=== PATIENT | female | born 1950 | race Caucasian/White ===

== ENCOUNTER 2018-11-11 17:35 | Observation (INO) | payer BC ==
[2018-11-11] MEDS ORDERED: Sodium Chloride 0.9% 1,000 ML IV ONE (17:47)
[2018-11-11] MEDS ORDERED: Adenosine 6 MG/2 ML SDV ONE ×2 (17:51→17:57)
[2018-11-11] MEDS ORDERED: Iopamidol 612 MG/ML 100 ML Bottle IVPUSH ONE (17:55)
[2018-11-11] MEDS ORDERED: Adenosine 6 MG/2 ML SDV IVPUSH ONE ×2 (18:06→18:10)
--- NOTE | 2018-11-11 18:30 | EDM.PDOC ---
ED HPI GENERAL MEDICAL PROBLEM - General Chief Complaint: General Stated Complaint: dizziness, tachycardia (came from clinic) Time Seen by Provider: 11/11/18 17:55 Source of Information: Reports: Patient History Limitations: Reports: No Limitations - History of Present Illness INITIAL COMMENTS - FREE TEXT/NARRATIVE: Adriana is a 68 year old female who presents to the ED with c/o dizziness, nausea , and gross hematuria. Presented to clinic and found to have pulse of 160 so was sent to ED. She reports she was seen in clinic 11/04/2017 by Chio OATES with gross hematuria for the past 2 weeks. Was told she had UTI. She reports she took the Bactrim as prescribed. Has not noticed much change in her hematuria. Urine culture was negative and rather showed contamination per my chart review. She has had gross hematuria for the past 4 weeks now and is wondering if she "has lost too much blood." Reports the dizziness and nausea just started this afternoon. She denies any chest pain, palpitations, shortness of breath. She is a smoker for the past 50 years. Reports she has been trying to cut back. Has cut down to 4-5 cigarettes/day. Reports she has chronic productive cough. O2 sat 91% in ED. Does report dyspnea with exertion. Associated Symptoms: Reports: Cough, cough w sputum, Loss of Appetite, Nausea/ Vomiting, Shortness of Breath. Denies: Confusion, Chest Pain, Diaphoresis, Fever/Chills, Headaches, Malaise, Rash, Seizure, Syncope, Weakness - Related Data Allergies Allergy/AdvReac Type Severity Reaction Status Date / Time erythromycin base Allergy Cannot Verified 11/11/18 17:39 Remember Home Meds: Home Meds Levothyroxine Sodium 125 mcg PO DAILY 05/08/16 [History] Loratadine [Claritin] 10 mg PO DAILY PRN 05/08/16 [History] Multivitamin [Multi-Day Vitamins] 1 tab PO DAILY 11/11/18 [History] Vitamin E 1 cap PO DAILY 11/11/18 [History] Metoprolol Succinate [Toprol XL] 12.5 mg PO BEDTIME #90 tab.er 11/12/18 [Rx] Past Medical History Cardiovascular History: Reports: High Cholesterol Respiratory History: Reports: SOB Genitourinary History: Reports: None Endocrine/Metabolic History: Reports: Hypothyroidism Social & Family History - Family History Family Medical History: Noncontributory - Tobacco Use Smoking Status *Q: Current Every Day Smoker Years of Tobacco use: 50 Packs/Tins Daily: 1 Packs/Tins Daily Comment: Has been trying to quit the past few months, down to 4 -5 cigarettes/day - Recreational Drug Use Recreational Drug Use: No - Living Situation & Occupation Living situation: Reports: ED ROS GENERAL - Review of Systems Review Of Systems: See Below Constitutional: Reports: Decreased Appetite. Denies: Fever, Chills, Malaise, Weakness, Fatigue, Diaphoresis HEENT: Reports: No Symptoms Respiratory: Reports: Shortness of Breath, Wheezing, Cough, Sputum Cardiovascular: Reports: Dyspnea on Exertion, Lightheadedness. Denies: Chest Pain, Edema, Palpitations, Syncope Endocrine: Denies: Fatigue GI/Abdominal: Reports: Decreased Appetite, Nausea. Denies: Abdominal Pain, Constipation, Diarrhea, Hematemesis, Hematochezia, Melena, Vomiting : Reports: Hematuria. Denies: Dysuria, Flank Pain, Urgency Musculoskeletal: Reports: No Symptoms Skin: Reports: No Symptoms Neurological: Reports: Dizziness. Denies: Confusion, Numbness, Paresthesia, Syncope, Tingling, Tremors, Weakness Psychiatric: Denies: Anxiety, Depression Hematologic/Lymphatic: Reports: No Symptoms Immunologic: Reports: No Symptoms ED EXAM, GENERAL - Physical Exam Exam: See Below Exam Limited By: No Limitations General Appearance: Alert, WD/WN, No Apparent Distress Eye Exam: Bilateral Eye: EOMI, Normal Fundi, Normal Inspection, PERRL Ears: Normal External Exam, Normal Canal, Hearing Grossly Normal, Normal TMs Nose: Normal Inspection, Normal Mucosa, No Blood Throat/Mouth: Normal Inspection, Normal Lips, Normal Teeth, Normal Gums, Normal Oropharynx, Normal Voice, No Airway Compromise Head: Atraumatic, Normocephalic Neck: Normal Inspection, Supple, Non-Tender, Full Range of Motion Respiratory/Chest: No Respiratory Distress, No Accessory Muscle Use Cardiovascular: Normal Peripheral Pulses, No Edema, No JVD, No Murmur, Tachycardia Peripheral Pulses: 2+: Dorsalis Pedis (L), Dorsalis Pedis (R) GI/Abdominal: Normal Bowel Sounds, Soft, Non-Tender, No Organomegaly, No Distention, No Abnormal Bruit, No Mass Back Exam: Normal Inspection, Full Range of Motion. No: CVA Tenderness (L), CVA Tenderness (R) Extremities: Normal Inspection, Normal Range of Motion, Non-Tender, Normal Capillary Refill, No Pedal Edema Neurological: Alert, Oriented, CN II-XII Intact, Normal Cognition, Normal Gait, Normal Reflexes, No Motor/Sensory Deficits Psychiatric: Normal Affect, Normal Mood Skin Exam: Warm, Dry, Intact, Normal Color, No Rash Lymphatic: No Adenopathy Course - Vital Signs Last Recorded V/S: Last Vital Signs Temp 97.8 F 11/12/18 11:59 Pulse 55 L 11/12/18 11:59 Resp 20 11/12/18 11:59 BP 137/70 11/12/18 11:59 Pulse Ox 96 11/12/18 11:59 - Orders/Labs/Meds Labs: Laboratory Tests 11/11/18 11/11/18 11/11/18 Range/Units 17:45 17:51 17:51 WBC 8.7 (5.0-10.0) 10^3/uL RBC 4.74 (4.00-5.50) 10^6/uL Hgb 14.7 (12.0-16.0) g/dL Hct 43.9 (37.0-47.0) % MCV 92.6 (82.0-94.0) fL MCH 31.0 (27.0-32.0) pg MCHC 33.5 (33.0-38.0) g/dL RDW Coeff of Maren 13.2 (11.0-15.0) % Plt Count 295 (150-400) 10^3/uL Neut % (Auto) 58.9 (35-85) % Lymph % (Auto) 28.0 (10-55) % Hanson % (Auto) 10.0 (0-16) % Eos % (Auto) 2.5 (0-5) % Baso % (Auto) 0.6 (0-3) % Neut # (Auto) 5.10 (1.80-7.00) 10^3/uL Lymph # (Auto) 2.43 (1.00-4.80) 10^3/uL Hanson # (Auto) 0.87 H (0.00-0.80) 10^3/uL Eos # (Auto) 0.22 (0.00-0.45) 10^3/uL Baso # (Auto) 0.05 10^3/uL PT 10.3 (9.7-12.3) SEC INR 0.99 (0.92-1.18) APTT 30.2 (23.2-32.3) SEC Sodium (136-145) mEq/L Potassium (3.5-5.0) mEq/L Chloride (98-106) mEq/L Carbon Dioxide (21-32) mmol/L BUN (7-18) mg/dL Creatinine (0.6-1.0) mg/dL Est Cr Clr Drug Dosing mL/min Estimated GFR (MDRD) (>=60) mL/min Glucose (75-99) mg/dL Hemoglobin A1c 6.0 (4.8-6.2) % Calcium (8.4-10.1) mg/dL Lactate Dehydrogenase (100-190) U/L Creatine Kinase (21-215) U/L Troponin I (0.00-0.06) ng/mL TSH, Ultra Sensitive (0.36-5.60) uIU/mL Urine Color (YELLOW) Urine Appearance (CLEAR) Urine pH (4.5-8.0) Ur Specific [place] (1.003-1.020) Urine Protein (NEGATIVE) mg/dL Urine Glucose (UA) (NEGATIVE) mg/dL Urine Ketones (NEGATIVE) mg/dL Urine Occult Blood (NEGATIVE) Urine Nitrite (NEGATIVE) Urine Bilirubin (NEGATIVE) Urine Urobilinogen (0.2-1.0) EU/dL Ur Leukocyte Esterase (NEGATIVE) Urine RBC (0-5) /HPF Urine WBC (0-5) /HPF 11/11/18 11/11/18 Range/Units 17:51 19:04 WBC (5.0-10.0) 10^3/uL RBC (4.00-5.50) 10^6/uL Hgb (12.0-16.0) g/dL Hct (37.0-47.0) % MCV (82.0-94.0) fL MCH (27.0-32.0) pg MCHC (33.0-38.0) g/dL RDW Coeff of Maren (11.0-15.0) % Plt Count (150-400) 10^3/uL Neut % (Auto) (35-85) % Lymph % (Auto) (10-55) % Hanson % (Auto) (0-16) % Eos % (Auto) (0-5) % Baso % (Auto) (0-3) % Neut # (Auto) (1.80-7.00) 10^3/uL Lymph # (Auto) (1.00-4.80) 10^3/uL Hanson # (Auto) (0.00-0.80) 10^3/uL Eos # (Auto) (0.00-0.45) 10^3/uL Baso # (Auto) 10^3/uL PT (9.7-12.3) SEC INR (0.92-1.18) APTT (23.2-32.3) SEC Sodium 134 L (136-145) mEq/L Potassium 4.8 (3.5-5.0) mEq/L Chloride 99 (98-106) mEq/L Carbon Dioxide 25 (21-32) mmol/L BUN 21 H (7-18) mg/dL Creatinine 1.7 H D (0.6-1.0) mg/dL Est Cr Clr Drug Dosing 32.18 mL/min Estimated GFR (MDRD) 30 L (>=60) mL/min Glucose 158 H D (75-99) mg/dL Hemoglobin A1c (4.8-6.2) % Calcium 9.4 (8.4-10.1) mg/dL Lactate Dehydrogenase 187 (100-190) U/L Creatine Kinase 71 (21-215) U/L Troponin I 0.049 (0.00-0.06) ng/mL TSH, Ultra Sensitive 2.21 (0.36-5.60) uIU/mL Urine Color Red (YELLOW) Urine Appearance Cloudy (CLEAR) Urine pH 6.0 (4.5-8.0) Ur Specific [place] 1.010 (1.003-1.020) Urine Protein >=300 H (NEGATIVE) mg/dL Urine Glucose (UA) 100 H (NEGATIVE) mg/dL Urine Ketones 15 H (NEGATIVE) mg/dL Urine Occult Blood Large H (NEGATIVE) Urine Nitrite Negative (NEGATIVE) Urine Bilirubin Negative (NEGATIVE) Urine Urobilinogen 0.2 (0.2-1.0) EU/dL Ur Leukocyte Esterase Negative (NEGATIVE) Urine RBC Packed H (0-5) /HPF Urine WBC Not seen (0-5) /HPF Meds: Medications Discontinued Medications Generic Name Dose Route Start Last Admin Trade Name Freq PRN Reason Stop Dose Admin Acetaminophen 650 mg 11/11/18 20:29 Tylenol PO Q4H PRN Pain (Mild 1-3)/fever Adenosine Confirm 11/11/18 17:51 11/11/18 18:22 Adenocard Administered 11/11/18 17:52 Not Given Dose 6 mg .ROUTE .STK-MED ONE Adenosine Confirm 11/11/18 17:57 11/11/18 18:22 Adenocard Administered 11/11/18 17:58 Not Given Dose 12 mg .ROUTE .STK-MED ONE Adenosine 6 mg 11/11/18 18:06 11/11/18 18:06 Adenocard IVPUSH 11/11/18 18:07 6 mg NOW ONE Administration Adenosine 12 mg 11/11/18 18:10 11/11/18 18:10 Adenocard IVPUSH 11/11/18 18:11 12 mg NOW ONE Administration Sodium Chloride 1,000 mls @ 250 mls/hr 11/11/18 17:47 11/11/18 18:28 Normal Saline IV 11/11/18 21:46 999 mls/hr .BOLUS ONE Administration Sodium Chloride 1,000 mls @ 125 mls/hr 11/11/18 20:29 11/12/18 05:56 Normal Saline IV Infused ASDIRECTED AILYN Infusion Iopamidol 100 ml 11/11/18 17:55 11/11/18 18:58 Isovue-300 (61%) IVPUSH 11/11/18 17:56 100 ml ONETIME ONE Administration Metoprolol Succinate 25 mg 11/11/18 20:29 11/11/18 21:18 Toprol Xl PO 25 mg BEDTIME IALYN Administration Ondansetron HCl 4 mg 11/11/18 20:29 Zofran IV Q6H PRN Nausea/Vomiting Temazepam 15 mg 11/11/18 20:29 Restoril PO BEDTIME PRN Sleep - Re-Assessments/Exams Free Text/Narrative Re-Assessment/Exam: 11/11/18 1751 Adenosine 6 mg administered via [address] stop cock to right AC PIV. Patient had no change in rate/rhythm following. 11/11/18 1800 Second dose of adenosine 12 mg administered. Pulse reduced to 80s. Repeat EKG shows sinus rhythm. Patient did have some nausea after administration that improved 1-2 minutes following administration. Cardiac monitoring in place. Pulse remains in 70-80s. BP stable. 11/11/18 18:44 Discussed ongoing gross hematuria with negative urine culture with patient. Discussed that we need to get imaging to determine cause of ongoing bleeding. Creatinine elevated to 1.7. Start IVF. Will get chest/abdomen/pelvis CT. 11/11/18 19:46 Cnsulted with [facility] [employer] Dr. Bolanos re: SVT. Reports we can start her on metoprolol and recommends f/u if SVT recurs. CT chest/abd/pelvis pending. Will admit to observation overnight for IVF and cardiac monitoring. 11/11/181999 CT abdomen pelvis reveals 2 x 2.5 cm left bladder mass. Discussed this with patient. She is currently voiding without difficulty. Free Text/Narrative Re-Assessment/Exam: PLEASE SEE NURSES NOT FOR FURTHER PMH, PSH, SH, & FH. Departure - Departure Time of Disposition: 19:56 Disposition: Home, Self-Care 01 Condition: Good Clinical Impression: Supraventricular tachycardia, Gross hematuria, Bladder mass, Acute renal insufficiency - Discharge Information *PRESCRIPTION DRUG MONITORING PROGRAM REVIEWED*: Not Applicable *COPY OF PRESCRIPTION DRUG MONITORING REPORT IN PATIENT DEIDRE: Not Applicable - Problem List & Annotations (1) Acute renal insufficiency SNOMED Code(s): 688898691 Code(s): N28.9 - DISORDER OF KIDNEY AND URETER, UNSPECIFIED Status: Acute (2) Bladder mass SNOMED Code(s): 891524667 Code(s): N32.89 - OTHER SPECIFIED DISORDERS OF BLADDER Status: Acute (3) Gross hematuria SNOMED Code(s): 679680625 Code(s): R31.0 - GROSS HEMATURIA Status: Acute (4) Supraventricular tachycardia SNOMED Code(s): 7612799 Code(s): I47.1 - SUPRAVENTRICULAR TACHYCARDIA Status: Acute - Problem List Review Problem List Initiated/Reviewed/Updated: Yes - Assessment/Plan Admission H&P: Please use this note as an admission H&P Plan: Admit to observation for cardiac monitoring overnight. Will repeat cardiac enzymes and lab work in am. Start IVF. Will start patient on low dose metoprolol daily. Discussed that we will arrange urology follow up on outpatient basis re: bladder mass. Patient transferred to floor in satisfactory condition.
[2018-11-11] MEDS ORDERED: Acetaminophen 325 MG Tab PO PRN (20:29)
[2018-11-11] MEDS ORDERED: Temazepam 15 MG Cap PO PRN (20:29)
[2018-11-11] MEDS ORDERED: Metoprolol Succinate 25 MG Tab.ER PO SCH (20:29)
[2018-11-11] MEDS ORDERED: Ondansetron 4 MG/2 ML SDV IV PRN (20:29)
[2018-11-11] MEDS: Sodium Chloride 0.9% 1,000 ML IV SCH (22:21)
[2018-11-12] MEDS: Sodium Chloride 0.9% 1,000 ML IV SCH (05:56)
--- NOTE | 2018-11-12 15:40 | PCM.DCSUM1 ---
Discharge Summary - Hospital Course Free Text/Narrative:: Adriana is a pleasant 68 year old female who was admitted to the hospital from the ED on 11/11/2018 with gross hematuria, bladder mass, GUY, and SVT. She presented to the clinic with c/o dizziness and nausea and was found to have pulse of 160, so was sent to ED. EKG revealed SVT with rate of 178. She did convert to NSR after 2 doses of adenosine and remained in NSR throughout hospital stay. She was started on metoprolol. Initially started on 25 mg metoprolol succinate daily. Did have pulse in 50s at times. Will be discharged home on 12.5 mg daily. Troponin was 0.049 on admit. Increased to 0.154. Did opt to keep for recheck and reduced to 0.128. Patient also had echo. Results pending at time of discharge. Chest CT revealed mildly dilated ascending aorta but no other acute findings. She also had been having gross hematuria for about the past [address] abdomen/ pelvis revealed 2 x 2.5 cm left bladder mass. Had previous negative urine culture. Was treated with Bactrim starting 11/04/2018 without resolution of hematuria. She continued to have gross hematuria throughout stay, but had no issues of urinary retention. Was voiding without difficulty. Hemoglobin stable at 14.7 on admit. Did drop to 13.1, however I suspect this is dilutional. Creatinine was elevated to 1.7 on admit. Did improve to 1.0 at time of discharge. Patient will be discharged home on 12.5 mg metoprolol succinate daily at . She is scheduled to follow up with urology December 06, cystoscopy scheduled for that time as well. She is advised to follow up with PCP if any issues with heart palpitations, dizziness, urinary retention, or any other concerns. Patient will be discharged home in satisfactory condition. We will notify patient of echocardiogram results when available. - Discharge Data Discharge Date: 11/12/18 Discharge Disposition: Home, Self-Care 01 Condition: Good - Discharge Diagnosis/Problem(s) (1) Acute renal insufficiency SNOMED Code(s): 173390175 ICD Code: N28.9 - DISORDER OF KIDNEY AND URETER, UNSPECIFIED Status: Acute (2) Bladder mass SNOMED Code(s): 887395936 ICD Code: N32.89 - OTHER SPECIFIED DISORDERS OF BLADDER Status: Acute (3) Gross hematuria SNOMED Code(s): 799839475 ICD Code: R31.0 - GROSS HEMATURIA Status: Acute (4) Supraventricular tachycardia SNOMED Code(s): 5298399 ICD Code: I47.1 - SUPRAVENTRICULAR TACHYCARDIA Status: Acute - Patient Instructions Diet: Usual Diet as Tolerated Activity: As Tolerated Notify Provider of: Fever, Increased Pain, Nausea and/or Vomiting Other/Special Instructions: Notify provider if any difficulty urinating, low pulse, dizziness, or heart racing - Discharge Plan *PRESCRIPTION DRUG MONITORING PROGRAM REVIEWED*: Not Applicable *COPY OF PRESCRIPTION DRUG MONITORING REPORT IN PATIENT DEIDRE: Not Applicable Prescriptions/Med Rec: Metoprolol Succinate [Toprol XL] 12.5 mg PO BEDTIME #90 tab.er Home Medications: Home Meds Levothyroxine Sodium 125 mcg PO DAILY 05/08/16 [History] Loratadine [Claritin] 10 mg PO DAILY PRN 05/08/16 [History] Multivitamin [Multi-Day Vitamins] 1 tab PO DAILY 11/11/18 [History] Vitamin E 1 cap PO DAILY 11/11/18 [History] Metoprolol Succinate [Toprol XL] 12.5 mg PO BEDTIME #90 tab.er 11/12/18 [Rx] Patient Handouts: Supraventricular Tachycardia, Adult Forms: ED Department Discharge Referrals: Norma Harrington PA-C [Primary Care Provider] - - Discharge Summary/Plan Comment DC Time >30 min.: No - General Info Date of Service: 11/12/18 Admission Dx/Problem (Free Text: SVT Bladder Mass GUY Gross Hematuria Subjective Update: Patient reports she has been feeling well throughout night. Has not had any dizziness, N/V, chest pain, shortness of breath. She continues to have gross hematuria, but has not had any difficulties voiding. Denies any abdominal pain. Has been eating full diet without issues. No concerns. Functional Status: Reports: Pain Controlled, Tolerating Diet, Ambulating, Urinating. Denies: New Symptoms - Review of Systems General: Reports: No Symptoms. Denies: Fever, Weakness, Fatigue, Malaise, Chills HEENT: Reports: No Symptoms Pulmonary: Reports: No Symptoms. Denies: Shortness of Breath Cardiovascular: Reports: No Symptoms. Denies: Chest Pain, Palpitations, Dyspnea on Exertion, Orthopnea, Edema, Lightheadedness Gastrointestinal: Reports: No Symptoms. Denies: Abdominal Pain, Decreased Appetite, Diarrhea, Nausea, Vomiting Genitourinary: Reports: Hematuria. Denies: Dysuria, Frequency, Burning, Pain, Urgency, Retention, Flank Pain Musculoskeletal: Reports: No Symptoms Skin: Reports: No Symptoms Neurological: Reports: No Symptoms. Denies: Dizziness, Headache, Weakness Psychiatric: Reports: No Symptoms - Patient Data Vitals - Most Recent: Last Vital Signs Temp 97.8 F 11/12/18 11:59 Pulse 55 L 11/12/18 11:59 Resp 20 11/12/18 11:59 BP 137/70 11/12/18 11:59 Pulse Ox 96 11/12/18 11:59 Weight - Most Recent: 211 lb 8 oz I&O - Last 24 hours: Intake & Output 11/12/18 11/12/18 11/12/18 06:59 14:59 22:59 Intake Total 1748 1000 Output Total 1200 Balance 548 1000 Lab Results - Last 24 hrs: Laboratory Results - last 24 hr 11/11/18 11/11/18 11/11/18 Range/Units 17:45 17:51 17:51 WBC 8.7 (5.0-10.0) 10^3/uL RBC 4.74 (4.00-5.50) 10^6/uL Hgb 14.7 (12.0-16.0) g/dL Hct 43.9 (37.0-47.0) % MCV 92.6 (82.0-94.0) fL MCH 31.0 (27.0-32.0) pg MCHC 33.5 (33.0-38.0) g/dL RDW Coeff of Maren 13.2 (11.0-15.0) % Plt Count 295 (150-400) 10^3/uL Neut % (Auto) 58.9 (35-85) % Lymph % (Auto) 28.0 (10-55) % Chambers % (Auto) 10.0 (0-16) % Eos % (Auto) 2.5 (0-5) % Baso % (Auto) 0.6 (0-3) % Neut # (Auto) 5.10 (1.80-7.00) 10^3/uL Lymph # (Auto) 2.43 (1.00-4.80) 10^3/uL Chambers # (Auto) 0.87 H (0.00-0.80) 10^3/uL Eos # (Auto) 0.22 (0.00-0.45) 10^3/uL Baso # (Auto) 0.05 10^3/uL PT 10.3 (9.7-12.3) SEC INR 0.99 (0.92-1.18) APTT 30.2 (23.2-32.3) SEC Sodium (136-145) mEq/L Potassium (3.5-5.0) mEq/L Chloride (98-106) mEq/L Carbon Dioxide (21-32) mmol/L BUN (7-18) mg/dL Creatinine (0.6-1.0) mg/dL Est Cr Clr Drug Dosing mL/min Estimated GFR (MDRD) (>=60) mL/min Glucose (75-99) mg/dL Hemoglobin A1c 6.0 (4.8-6.2) % Calcium (8.4-10.1) mg/dL Lactate Dehydrogenase (100-190) U/L Creatine Kinase (21-215) U/L Troponin I (0.00-0.06) ng/mL Triglycerides (30-150) mg/dL Cholesterol (0-199) mg/dL LDL Cholesterol, Calc (0-99) mg/dL HDL Cholesterol (60-90) mg/dL TSH, Ultra Sensitive (0.36-5.60) uIU/mL Urine Color (YELLOW) Urine Appearance (CLEAR) Urine pH (4.5-8.0) Ur Specific [place] (1.003-1.020) Urine Protein (NEGATIVE) mg/dL Urine Glucose (UA) (NEGATIVE) mg/dL Urine Ketones (NEGATIVE) mg/dL Urine Occult Blood (NEGATIVE) Urine Nitrite (NEGATIVE) Urine Bilirubin (NEGATIVE) Urine Urobilinogen (0.2-1.0) EU/dL Ur Leukocyte Esterase (NEGATIVE) Urine RBC (0-5) /HPF Urine WBC (0-5) /HPF 11/11/18 11/11/18 11/12/18 Range/Units 17:51 19:04 07:00 WBC 4.6 L (5.0-10.0) 10^3/uL RBC 4.28 (4.00-5.50) 10^6/uL Hgb 13.1 (12.0-16.0) g/dL Hct 40.3 (37.0-47.0) % MCV 94.2 H (82.0-94.0) fL MCH 30.6 (27.0-32.0) pg MCHC 32.5 L (33.0-38.0) g/dL RDW Coeff of Maren 13.2 (11.0-15.0) % Plt Count 239 (150-400) 10^3/uL Neut % (Auto) 55.3 (35-85) % Lymph % (Auto) 26.0 (10-55) % Chambers % (Auto) 14.1 (0-16) % Eos % (Auto) 3.7 (0-5) % Baso % (Auto) 0.9 (0-3) % Neut # (Auto) 2.55 (1.80-7.00) 10^3/uL Lymph # (Auto) 1.20 (1.00-4.80) 10^3/uL Chambers # (Auto) 0.65 (0.00-0.80) 10^3/uL Eos # (Auto) 0.17 (0.00-0.45) 10^3/uL Baso # (Auto) 0.04 10^3/uL PT (9.7-12.3) SEC INR (0.92-1.18) APTT (23.2-32.3) SEC Sodium 134 L (136-145) mEq/L Potassium 4.8 (3.5-5.0) mEq/L Chloride 99 (98-106) mEq/L Carbon Dioxide 25 (21-32) mmol/L BUN 21 H (7-18) mg/dL Creatinine 1.7 H D (0.6-1.0) mg/dL Est Cr Clr Drug Dosing 32.18 mL/min Estimated GFR (MDRD) 30 L (>=60) mL/min Glucose 158 H D (75-99) mg/dL Hemoglobin A1c (4.8-6.2) % Calcium 9.4 (8.4-10.1) mg/dL Lactate Dehydrogenase 187 (100-190) U/L Creatine Kinase 71 (21-215) U/L Troponin I 0.049 (0.00-0.06) ng/mL Triglycerides (30-150) mg/dL Cholesterol (0-199) mg/dL LDL Cholesterol, Calc (0-99) mg/dL HDL Cholesterol (60-90) mg/dL TSH, Ultra Sensitive 2.21 (0.36-5.60) uIU/mL Urine Color Red (YELLOW) Urine Appearance Cloudy (CLEAR) Urine pH 6.0 (4.5-8.0) Ur Specific [place] 1.010 (1.003-1.020) Urine Protein >=300 H (NEGATIVE) mg/dL Urine Glucose (UA) 100 H (NEGATIVE) mg/dL Urine Ketones 15 H (NEGATIVE) mg/dL Urine Occult Blood Large H (NEGATIVE) Urine Nitrite Negative (NEGATIVE) Urine Bilirubin Negative (NEGATIVE) Urine Urobilinogen 0.2 (0.2-1.0) EU/dL Ur Leukocyte Esterase Negative (NEGATIVE) Urine RBC Packed H (0-5) /HPF Urine WBC Not seen (0-5) /HPF 11/12/18 11/12/18 Range/Units 07:10 14:40 WBC (5.0-10.0) 10^3/uL RBC (4.00-5.50) 10^6/uL Hgb (12.0-16.0) g/dL Hct (37.0-47.0) % MCV (82.0-94.0) fL MCH (27.0-32.0) pg MCHC (33.0-38.0) g/dL RDW Coeff of Maren (11.0-15.0) % Plt Count (150-400) 10^3/uL Neut % (Auto) (35-85) % Lymph % (Auto) (10-55) % Chambers % (Auto) (0-16) % Eos % (Auto) (0-5) % Baso % (Auto) (0-3) % Neut # (Auto) (1.80-7.00) 10^3/uL Lymph # (Auto) (1.00-4.80) 10^3/uL Chambers # (Auto) (0.00-0.80) 10^3/uL Eos # (Auto) (0.00-0.45) 10^3/uL Baso # (Auto) 10^3/uL PT (9.7-12.3) SEC INR (0.92-1.18) APTT (23.2-32.3) SEC Sodium 139 (136-145) mEq/L Potassium 4.7 (3.5-5.0) mEq/L Chloride 105 (98-106) mEq/L Carbon Dioxide 29 (21-32) mmol/L BUN 14 (7-18) mg/dL Creatinine 1.0 (0.6-1.0) mg/dL Est Cr Clr Drug Dosing 54.71 mL/min Estimated GFR (MDRD) 55 L (>=60) mL/min Glucose 89 D (75-99) mg/dL Hemoglobin A1c (4.8-6.2) % Calcium 8.6 (8.4-10.1) mg/dL Lactate Dehydrogenase (100-190) U/L Creatine Kinase (21-215) U/L Troponin I 0.154 H 0.128 H (0.00-0.06) ng/mL Triglycerides 63 (30-150) mg/dL Cholesterol 174 (0-199) mg/dL LDL Cholesterol, Calc 110 H (0-99) mg/dL HDL Cholesterol 51 L (60-90) mg/dL TSH, Ultra Sensitive (0.36-5.60) uIU/mL Urine Color (YELLOW) Urine Appearance (CLEAR) Urine pH (4.5-8.0) Ur Specific [place] (1.003-1.020) Urine Protein (NEGATIVE) mg/dL Urine Glucose (UA) (NEGATIVE) mg/dL Urine Ketones (NEGATIVE) mg/dL Urine Occult Blood (NEGATIVE) Urine Nitrite (NEGATIVE) Urine Bilirubin (NEGATIVE) Urine Urobilinogen (0.2-1.0) EU/dL Ur Leukocyte Esterase (NEGATIVE) Urine RBC (0-5) /HPF Urine WBC (0-5) /HPF Med Orders - Current: Current Medications Acetaminophen (Tylenol) 650 mg PO Q4H PRN PRN Reason: Pain (Mild 1-3)/fever Sodium Chloride (Normal Saline) 1,000 mls @ 125 mls/hr IV ASDIRECTED AILYN Last Infusion: 11/12/18 05:56 Dose: Infused Metoprolol Succinate (Toprol Xl) 25 mg PO BEDTIME AILYN Last Admin: 11/11/18 21:18 Dose: 25 mg Ondansetron HCl (Zofran) 4 mg IV Q6H PRN PRN Reason: Nausea/Vomiting Temazepam (Restoril) 15 mg PO BEDTIME PRN PRN Reason: Sleep Discontinued Medications Adenosine (Adenocard) Confirm Administered Dose 6 mg .ROUTE .STK-MED ONE Stop: 11/11/18 17:52 Last Admin: 11/11/18 18:22 Dose: Not Given Adenosine (Adenocard) Confirm Administered Dose 12 mg .ROUTE .STK-MED ONE Stop: 11/11/18 17:58 Last Admin: 11/11/18 18:22 Dose: Not Given Adenosine (Adenocard) 6 mg IVPUSH NOW ONE Stop: 11/11/18 18:07 Last Admin: 11/11/18 18:06 Dose: 6 mg Adenosine (Adenocard) 12 mg IVPUSH NOW ONE Stop: 11/11/18 18:11 Last Admin: 11/11/18 18:10 Dose: 12 mg Sodium Chloride (Normal Saline) 1,000 mls @ 250 mls/hr IV .BOLUS ONE Stop: 11/11/18 21:46 Last Admin: 11/11/18 18:28 Dose: 999 mls/hr Iopamidol (Isovue-300 (61%)) 100 ml IVPUSH ONETIME ONE Stop: 11/11/18 17:56 Last Admin: 11/11/18 18:58 Dose: 100 ml - Exam General: Reports: Alert, Oriented, No Acute Distress Neck: Reports: Supple Lungs: Reports: Clear to Auscultation, Normal Respiratory Effort Cardiovascular: Reports: Regular Rate, Regular Rhythm, No Murmurs GI/Abdominal Exam: Normal Bowel Sounds, Soft, Non-Tender, No Organomegaly, No Distention, No Abnormal Bruit, No Mass, Pelvis Stable Back Exam: Reports: Normal Inspection, Full Range of Motion. Denies: CVA Tenderness (L), CVA Tenderness (R) Extremities: Normal Inspection, Normal Range of Motion, Non-Tender, No Pedal Edema, Normal Capillary Refill Skin: Reports: Warm, Dry, Intact Neurological: Reports: No New Focal Deficit Psy/Mental Status: Reports: Alert, Normal Affect, Normal Mood
== END 2018-11-12 15:50 | disposition home or self-care (01) ==
LOC: CC.ED 17:35 → CC.MS 19:42 → UNDOADMOB 19:42 → CC.MS 19:57
PROVIDERS: ADMIT Nurse Practitioner Family; ATTEND Family Medicine
DX: R31.9 Hematuria, unspecified (principal); N28.9 Disorder of kidney and ureter, unspecified; I47.1 Supraventricular tachycardia; N32.89 Other specified disorders of bladder; F17.210 Nicotine dependence, cigarettes, uncomplicated; E78.00 Pure hypercholesterolemia, unspecified; E03.9 Hypothyroidism, unspecified; Z79.890 Hormone replacement therapy; Z79.899 Other long term (current) drug therapy; Z88.1 Allergy status to other antibiotic agents
CPT/HCPCS: 36415; 71260; 74178; 80048; 80061; 81001; 82550; 83036; 83615; 84443; 84484; 85025; 85610; 85730; 93005; 93306; 96361; 96374; 99285-25; A9270-GY; G0378; J0153; J7030; Q9967

== ENCOUNTER → 2020-02-06 | Day surgery (SDC) | payer BC ==
[~2020-02-06] MED LIST: Ketamine 200 MG/20 ML MDV IV ONE; Propofol 200 MG/20 ML SDV IV ONE
[2020-02-06] MEDS: Lactated Ringers 1,000 ML IV SCH (09:15)
--- NOTE | 2020-02-06 15:25 | OR ---
DATE OF OPERATION: 02/06/2020 PREOPERATIVE DIAGNOSIS: FAMILY HISTORY OF COLON CANCER. POSTOPERATIVE DIAGNOSIS: FAMILY HISTORY OF COLON CANCER. SURGEON: Stepan Barriga MD PROCEDURE: FULL-LENGTH COLONOSCOPY WITH FORCEPS POLYP REMOVAL X5. ANESTHESIA: MAC. COMPLICATIONS: None. SPECIMEN: Five sessile polyps, left colon, see report. FINDINGS: 1. Full-length colonoscopy. 2. Lyal-pi-vnkwdyic sigmoid diverticulosis. 3. Sessile polyps x5, all less than 0.5 cm. RECOMMENDATIONS: Followup colonoscopy in 3 years. INDICATIONS: The patient was in to see Rocio Garcias for a routine physical. She has never had a prior colonoscopy and she apparently has a family history of colon cancer in a sister. Rocio recommended a screening procedure. DESCRIPTION OF PROCEDURE: The patient was prepped and draped, placed in the left lateral decubitus position. A lubricated Olympus colonoscope was inserted and easily advanced to the cecum. Direct visualization of the ileocecal valve and appendiceal orifice was accomplished. The bowel prep was adequate. There was a lot of stool left in the colon, but most of this was easily suctioned. Upon withdrawal of the cecal pouch, ascending and transverse colon appeared completely benign. The patient does have scattered diverticula extending from the distal ascending colon throughout the rectosigmoid region, mild to moderate in severity. In the left colon, the patient had a total of 5 small sessile polyps ranging anywhere from 3 to 5 mm, 1 in the sigmoid, 2 in the distal sigmoid, 1 in the rectosigmoid, and 1 in the proximal rectal vault, all were removed with forceps, most with 1 or 2 biopsies. The rest of the rectal vault appeared benign. Retroflexion did not show any obvious anal lesions. Air was suctioned and the scope removed without complication. FLORA/BRANDON /[id number]
== END ==
LOC: CC.SDS 08:48
PROVIDERS: ATTEND Family Medicine
DX: Z12.11 Encounter for screening for malignant neoplasm of colon (principal); K57.30 Diverticulosis of large intestine without perforation or abscess without bleeding; K62.1 Rectal polyp; K63.5 Polyp of colon; I10 Essential (primary) hypertension; E03.9 Hypothyroidism, unspecified; E55.9 Vitamin D deficiency, unspecified; F17.210 Nicotine dependence, cigarettes, uncomplicated; E78.5 Hyperlipidemia, unspecified; Z88.1 Allergy status to other antibiotic agents; Z79.890 Hormone replacement therapy; Z79.899 Other long term (current) drug therapy; Z80.0 Family history of malignant neoplasm of digestive organs
CPT/HCPCS: 45380; J2704; J7120

== ENCOUNTER → 2023-05-25 | Day surgery (SDC) | payer BC ==
[~2023-05-25] MED LIST changes: +Flumazenil 0.1 MG/ML 10 ML MDV ONE; -Ketamine 200 MG/20 ML MDV IV ONE; +Ketamine 200 MG/20 ML MDV ONE; +Lactated Ringers 1,000 ML IV SCH; +Midazolam 1 MG/ML 2 ML SDV ONE; +Phenylephrine 1% 10 MG/ML SDV ONE; -Propofol 200 MG/20 ML SDV IV ONE; +Propofol 200 MG/20 ML SDV ONE; +fentaNYL 50 MCG/ML SDV ONE
== END ==
LOC: CC.SDS 06:41
PROVIDERS: ATTEND Family Medicine
DX: Z12.11 Encounter for screening for malignant neoplasm of colon (principal); K57.30 Diverticulosis of large intestine without perforation or abscess without bleeding; E78.5 Hyperlipidemia, unspecified; I10 Essential (primary) hypertension; E03.9 Hypothyroidism, unspecified; J30.2 Other seasonal allergic rhinitis; Z79.899 Other long term (current) drug therapy; Z88.0 Allergy status to penicillin; F17.210 Nicotine dependence, cigarettes, uncomplicated; Z98.49 Cataract extraction status, unspecified eye; Z80.0 Family history of malignant neoplasm of digestive organs; Z86.010 Personal history of colon polyps
CPT/HCPCS: 00812; 99100; J2250; J2371; J2704; J3010; J3490; J7120